=== PATIENT | male | born 1945 | race Caucasian/White ===

== ENCOUNTER → 2016-04-09 | Outpatient (CLI) | payer OTHER ==
--- NOTE | ~2016-04-09 | P ---
[facility] [place] [address] PROCEDURE REPORT Name: JENBERNICEJOLENE Lara Room #: 150-5 [facility] IN ..#: [id number] Admission: 04/09/16 Attend Phys: Johan Bermeo Discharge: Date of : 49 Report #: [id number] THIS REPORT FOR: //name// CC: Johan eReder DO DATE OF SERVICE: 04/09/2016 PROCEDURE PERFORMED: Colonoscopy. HISTORY OF PRESENT ILLNESS: The patient is a 70-year-old male who presents today for a routine screening colonoscopy. Denies any symptoms. Last colonoscopy was in 2006, normal; no family history of colon cancer. DESCRIPTION OF PROCEDURE: The risks and benefits of the procedure were explained to the patient, those risks including but not limited to bleeding, perforation, the risk of sedation. He understood these risks and gave informed consent. Sedation was given using propofol per anesthesia. Next, a digital rectal exam was initially performed, which was normal. Next, using a standard Fujinon colonoscope, the scope was placed in the patient's anus and advanced under direct vision to the cecum. The overall prep was good. The cecum and ileocecal valve were normal in appearance. The ascending, transverse, descending and sigmoid colon were all normal. The rectal mucosa was normal. On retroflexion, small nonbleeding internal hemorrhoids were noted, otherwise normal colonoscopy. The scope was then withdrawn and the procedure terminated. The patient tolerated the procedure well. IMPRESSION: 1. Small internal hemorrhoids. 2. Otherwise, normal colonoscopy. RECOMMENDATIONS: Repeat colonoscopy in 10 years. Thank you for allowing me to participate in his care. <ELECTRONICALLY SIGNED> By: Johan Waddell MD 04/09/16 [id number] Johan Waddell MD /nt
== END | disposition home or self-care (01) ==
LOC: GI 02:05 → TBA 07:37 → GI 07:37
DX: Z12.11 Encounter for screening for malignant neoplasm of colon (principal); K64.8 Other hemorrhoids
CPT/HCPCS: 10086; 62110; 62900